=== PATIENT | male | born 1980 | race Two or more races ===

== ENCOUNTER 2023-02-12 16:09 | Emergency (ER) | payer OTHER ==
[~2023-02-12] VITALS: Ht 182.9 cm; Wt 80.3 kg
[2023-02-12 16:38] LABS: BASOPHILS # (AUTO) 0.1 K/uL (0.0-0.2); BASOPHILS % (AUTO) 1.1 % (0.0-2.0); EOSINOPHILS # (AUTO) 0.2 K/uL (0.0-0.7); EOSINOPHILS % (AUTO) 2.2 % (0.0-6.0); HEMATOCRIT 25 % (39-51); LYMPHOCYTES # (AUTO) 0.7 K/uL (0.8-4.8); LYMPHOCYTES % (AUTO) 9.4 % (20.0-44.0); MEAN CORPUSCULAR HEMOGLOBIN 30 PG (26.0-33.0); MEAN CORPUSCULAR HGB CONC 32 g/dl (31.0-36.0); MEAN CORPUSCULAR VOLUME 94 fL (80-96); MONOCYTES # (AUTO) 0.8 K/uL (0.1-1.30); MONOCYTES % (AUTO) 10.4 % (2.0-12.0); NEUTROPHILS # (AUTO) 5.8 K/uL (1.8-8.9); NEUTROPHILS % (AUTO) 76.9 % (43.0-81.0); PLATELET COUNT (AUTO) 236 K/uL (150-450); RED BLOOD CELL COUNT(AUTO) 2.66 MIL/uL (4.5-6.0); RED CELL DISTRIBUTION WIDTH 19.1 % (11.5-15.0); WHITE BLOOD COUNT (AUTO) 7.5 K/uL (4.3-11.0)
[2023-02-12 17:02] LABS: CALCIUM, SERUM 9.6 mg/dL (8.5-10.1); CARBON DIOXIDE 28 mmol/L (21-32); CHLORIDE 101 mmol/L (98-107); CREATININE 5.9 mg/dL (0.6-1.3); GLUCOSE 93 mg/dL (74-106); POTASSIUM 3.3 mmol/L (3.5-5.1); SODIUM SERUM 142 mmol/L (136-145); UREA NITROGEN, BLOOD 27 mg/dL (7-18)
[2023-02-12 17:06] LABS: INR 1.03 (0.91-1.10); PARTIAL THROMBOPLASTIN TIME 43.2 SEC (24.3-34.3); PROTHROMBIN TIME 10.8 SECS (9.2-11.1)
[2023-02-12 17:15] LABS: LACTIC ACID 0.9 mmol/L (0.4-2.0)
[2023-02-12 17:17] LABS: ALANINE AMINOTRANSFERASE 12 U/L (12-78); ALBUMIN 2.9 g/dL (3.4-5.0); ALKALINE PHOSPHATASE 144 U/L (46-116); ASPARTATE AMINOTRANSFERASE 23 U/L (15-37); BILIRUBIN,DIRECT 0.3 mg/dL (0.0-0.2); BILIRUBIN,TOTAL 1.2 mg/dL (0.2-1.0); TOTAL PROTEIN, SERUM 8.1 g/dL (6.4-8.2)
[2023-02-12 17:34] LABS: LYMPHOCYTES % (MANUAL) 16 % (16-48); MONOCYTES % (MANUAL) 12 % (0-11.0); NEUTROPHILS % (MANUAL) 72 (42-76)
[2023-02-12 17:35] LABS: PLATELET ESTIMATE ADEQUATE
[2023-02-12 19:54] LABS: NT-PRO BNP 125753 pg/mL (0-125)
[2023-02-12] MEDS ORDERED: ACETAMINOPHEN ES 500 MG TABLET PO ONE (21:30)
[2023-02-12] MEDS ORDERED: NITROGLYCERIN PACKET 1 GM PACKET TD ONE (21:30)
[2023-02-12] MEDS ORDERED: FUROSEMIDE 40 MG/4 ML VIAL IV ONE (21:30)
[2023-02-12] MEDS ORDERED: NITROGLYCERIN PACKET 1 GM PACKET ONE (21:35)
[2023-02-12] MEDS ORDERED: FUROSEMIDE 40 MG/4 ML VIAL ONE (21:35)
[2023-02-12] MEDS ORDERED: ACETAMINOPHEN ES 500 MG TABLET ONE (21:35)
[2023-02-12 22:10] VITALS: BP 151/91; TEMP 98.6; O2SAT 96
[2023-02-13 08:36] LABS: ABG BASE EXCESS 9.6 mmol/L; ABG OXYGEN SATURATION 97.1 % (92.0-98.5); ABG PCO2 28.4 mmHg (35.0-45.0); ABG PH 7.652 (7.350-7.450); ABG PO2 84.4 mmHg (75.0-100.0); ABG TOTAL HEMOGLOBIN 8.6 G/dL (13.5-18.0); COHb 0.9 % (0.5-1.5); O2Hb 96.2 % (94.0-97.0); SITE, ABG Right Radial; VENT MODE, BG 15 LPM NRB
== END 2023-02-12 22:10 | disposition short-term general hospital (02) ==
LOC: ER 16:09
DX: N18.6 End stage renal disease (principal); R06.02 Shortness of breath; E86.9 Volume depletion, unspecified; Z20.822 Contact with and (suspected) exposure to COVID-19; Z88.1 Allergy status to other antibiotic agents; Z91.013 Allergy to seafood
CPT/HCPCS: 99291; 96374; 87426; 93005; 82803; 71045; 85025; 80048; 83605; 80076; 83735; 36415; 84484 ×2; 85730; 83880; 36600 ×2; 94799; 85007; J1940; C9803